=== PATIENT | male | born 1985 | race Caucasian/White ===

== ENCOUNTER 2019-09-16 08:30 | Emergency (ER) | payer OTHER ==
[2019-09-16 08:51] VITALS: BP 127/83
--- NOTE | 2019-09-16 10:58 | ED Physician Documentation ---
PD HPI HEENT - Stated complaint Stated Complaint: COUGH/ST - Chief complaint Chief Complaint: Heent - History obtained from History obtained from: Patient - History of Present Illness Timing - onset: How many days ago (10) Timing - duration: Days (10) Timing - details: Still present Location: Nose, Throat Improves: Nothing Associated symptoms: Congestion, Cough. No: Fever, Rhinorrhea Recently seen: Not recently seen - Additional information Additional information: This is a 33-year-old presents with complaints that he had a sore throat for the past week and a half and it just seems to be getting worse he is coughing and bringing up yellow phlegm potential little bit red for the past 4 days. The cough hurts his ears and his nose. He had a stuffy nose but no rhinorrhea. Has been having all over body aches. No fever. He has tried Robitussin without relief. He was not around anyone who is ill. He does not smoke tobacco. Review of Systems Constitutional: denies: Fever Ears: reports: Ear pain Nose: reports: Congestion. denies: Rhinorrhea / runny nose Throat: reports: Sore throat Respiratory: reports: Cough PD PAST MEDICAL HISTORY - Present Medications Home Medications: Ambulatory Orders Medication Instructions Recorded Confirmed Azithromycin [Zithromax] 0 mg PO DAILY #6 tablet 09/16/19 - Allergies Allergies/Adverse Reactions: Allergies Allergy/AdvReac Type Severity Reaction Status Date / Time No Known Drug Allergies Allergy Verified 09/16/19 08:51 PD ED PE NORMAL - Vitals Vital signs reviewed: Yes - General General: Alert and oriented X 3, No acute distress, Well developed/nourished - HEENT HEENT: Atraumatic, PERRL, Ears normal, Moist mucous membranes, Pharynx benign - Neck Neck: Supple, no meningeal sign, No adenopathy, Thyroid normal - Cardiac Cardiac: RRR, No murmur, Strong equal pulses - Respiratory Respiratory: No respiratory distress, Clear bilaterally Results - Vitals Vitals: Vital Signs - 24 hr 09/16/19 08:48 Temperature 36.4 C L Heart Rate 62 Respiratory 16 Rate Blood Pressure 127/83 H O2 Saturation 98 Oxygen O2 Source Room air - Labs Labs: Laboratory Tests 09/16/19 08:50 Group A Strep Rapid Negative PD MEDICAL DECISION MAKING - ED course Complexity details: d/w patient ED course: Strep screen was negative. The patient has had a upper respiratory infection now coughing up yellow phlegm tinged with red of elected to put him on a Zithromax Z-DONA and have recommended Delsym [id number] as a cough suppressant. Follow-up for reevaluation if not improving. Departure - Departure Disposition: 01 Home, Self Care Clinical Impression: Bronchitis Condition: Good Instructions: ED Upper Resp Infec Abx Tx Follow-Up: ELROY Laureano [Provider Group] Prescriptions: Azithromycin [Zithromax] 0 mg PO DAILY #6 tablet Comments: Delsym [id number] can be a good cough suppressant. Also taking ibuprofen can help with the inflammation and the pain. Take the Z-Dona as prescribed. Discharge Date/Time: 09/16/19 11:31
== END 2019-09-16 11:31 | disposition home or self-care (01) ==
LOC: ED 08:30
DX: J40 Bronchitis, not specified as acute or chronic (principal); J06.9 Acute upper respiratory infection, unspecified
CPT/HCPCS: 87070; 87430; 99283